=== PATIENT | male | born 1930 | race Caucasian/White ===

== ENCOUNTER → 2016-12-21 | Outpatient (CLI) | payer BC ==
[2016-12-21 13:00] LABS: BASO % 0.5 %; BASO ABS # 0.03 K/uL (0-0.2); COMPLETE YES; EOS % 2.1 %; HEMATOCRIT 45.3 % (42-52); IG% 0.2 %; LYMPH % 27.3 %; LYMPH ABS # 1.69 K/uL (1.2-3.4); MEAN CELL VOLUME 92.3 fL (80-100); MEAN CORPUSCULAR HEMOGLOBIN 30.1 pg (25-34); MEAN CORPUSCULAR HGB CONC 32.7 g/dl (32-36); MEAN PLATELET VOLUME 9.4 fL (7.4-10.4); MONO % 9.7 %; NEUT % 60.2 %; PLATELET COUNT 230 K/uL (130-400); RED BLOOD COUNT 4.91 M/uL (4.7-6.1); WHITE BLOOD COUNT 6.19 K/uL (4.8-10.8)
[2016-12-21 13:58] LABS: ALT/SGPT 53 U/L (12-78); AST/SGOT 35 U/L (15-37); BLOOD UREA NITROGEN 26 mg/dl (7-18); BUN/CREATININE RATIO 23.2 (10-20); CALCIUM 8.9 mg/dl (8.5-10.1); CARBON DIOXIDE 27 mmol/L (21-32); CHLORIDE 110 mmol/L (98-107); GLUCOSE 92 mg/dl (70-99); POTASSIUM 4.1 mmol/L (3.5-5.1); SODIUM 143 mmol/L (136-145)
[2016-12-21 14:01] LABS: CHOLESTEROL 182 mg/dl (0-200); CHOLESTEROL/HDL RATIO 3.8; HDL CHOLESTEROL 48 mg/dl; LDL CHOLESTEROL CALCULATED 97 mg/dl; TRIGLYCERIDES 185 mg/dl (0-150); VERY LOW DENSITY LIPOPROT CALC 37 mg/dl
== END | disposition home or self-care (01) ==
LOC: C.LABMFLN 10:03
PROVIDERS: ATTEND Family Medicine
DX: I48.92 Unspecified atrial flutter (principal); I25.10 Atherosclerotic heart disease of native coronary artery without angina pectoris; E78.5 Hyperlipidemia, unspecified

== ENCOUNTER → 2017-11-01 | Outpatient (CLI) | payer BC ==
[2017-11-01 12:58] LABS: BASO % 0.5 %; BASO ABS # 0.03 K/uL (0-0.2); EOS % 3.8 %; EOS ABS # 0.22 K/uL (0-0.5); HEMATOCRIT 44.9 % (42-52); HEMOGLOBIN 15.3 g/dL (14.0-18.0); IG# 0.01 K/uL (0.00-0.02); LYMPH % 21.4 %; LYMPH ABS # 1.23 K/uL (1.2-3.4); MEAN CELL VOLUME 92.4 fL (80-100); MEAN CORPUSCULAR HEMOGLOBIN 31.5 pg (25-34); MEAN CORPUSCULAR HGB CONC 34.1 g/dl (32-36); MONO % 9.5 %; MONO ABS # 0.55 K/uL (0.11-0.59); NEUT % 64.6 %; NEUT ABS # 3.72 K/uL (1.4-6.5); PLATELET COUNT 235 K/uL (130-400); RED CELL DISTRIBUTION WIDTH CV 13.7 % (11.5-14.5); RED CELL DISTRIBUTION WIDTH SD 46.5 fL (36.4-46.3); WHITE BLOOD COUNT 5.76 K/uL (4.8-10.8)
[2017-11-01 13:57] LABS: ALBUMIN 3.8 gm/dl (3.4-5.0); ALT/SGPT 46 U/L (12-78); AST/SGOT 37 U/L (15-37); BLOOD UREA NITROGEN 19 mg/dl (7-18); CALCIUM 9.4 mg/dl (8.5-10.1); CARBON DIOXIDE 27 mmol/L (21-32); CHOLESTEROL 177 mg/dl (0-200); CREATININE 1.06 mg/dl (0.60-1.40); GLUCOSE 84 mg/dl (70-99); SODIUM 140 mmol/L (136-145)
[2017-11-01 14:00] LABS: ALKALINE PHOSPHATASE 68 U/L (45-117); LDL CHOLESTEROL CALCULATED 105 mg/dl
== END | disposition home or self-care (01) ==
LOC: C.LABMFLN 10:13
PROVIDERS: ATTEND Family Medicine
DX: I48.92 Unspecified atrial flutter (principal); I25.10 Atherosclerotic heart disease of native coronary artery without angina pectoris; E78.5 Hyperlipidemia, unspecified; I10 Essential (primary) hypertension

== ENCOUNTER → 2018-02-07 | Outpatient (CLI) | payer BC ==
[2018-02-07 12:33] LABS: BASO % 0.3 %; BASO ABS # 0.02 K/uL (0-0.2); EOS ABS # 0.19 K/uL (0-0.5); HEMOGLOBIN 14.2 g/dL (14.0-18.0); IG# 0.02 K/uL (0.00-0.02); MEAN CELL VOLUME 93.3 fL (80-100); MEAN CORPUSCULAR HEMOGLOBIN 30.8 pg (25-34); MEAN PLATELET VOLUME 10.5 fL (7.4-10.4); MONO % 10.2 %; MONO ABS # 0.65 K/uL (0.11-0.59); NEUT % 64.2 %; NEUT ABS # 4.08 K/uL (1.4-6.5); PLATELET COUNT 202 K/uL (130-400); RED CELL DISTRIBUTION WIDTH CV 13.9 % (11.5-14.5); RED CELL DISTRIBUTION WIDTH SD 46.9 fL (36.4-46.3); WHITE BLOOD COUNT 6.36 K/uL (4.8-10.8)
[2018-02-07 12:44] LABS: INR 1.6 (0.9-1.1)
[2018-02-07 13:13] LABS: BLOOD UREA NITROGEN 22 mg/dl (7-18); CALCIUM 8.6 mg/dl (8.5-10.1); CARBON DIOXIDE 26 mmol/L (21-32); CREATININE 1.28 mg/dl (0.60-1.40); GLUCOSE 90 mg/dl (70-99); POTASSIUM 4.3 mmol/L (3.5-5.1); SODIUM 139 mmol/L (136-145)
== END | disposition home or self-care (01) ==
LOC: C.LABMFLN 10:52
PROVIDERS: ATTEND Family Medicine
DX: I95.9 Hypotension, unspecified (principal); Z79.01 Long term (current) use of anticoagulants; I25.10 Atherosclerotic heart disease of native coronary artery without angina pectoris

== ENCOUNTER → 2018-03-01 | Outpatient (CLI) | payer BC ==
[2018-03-01 12:36] LABS: BASO % 0.3 %; BASO ABS # 0.02 K/uL (0-0.2); EOS % 3.2 %; HEMOGLOBIN 14.4 g/dL (14.0-18.0); IG# 0.02 K/uL (0.00-0.02); LYMPH ABS # 1.45 K/uL (1.2-3.4); MEAN CORPUSCULAR HEMOGLOBIN 30.8 pg (25-34); MEAN CORPUSCULAR HGB CONC 32.7 g/dl (32-36); MEAN PLATELET VOLUME 10.5 fL (7.4-10.4); MONO % 7.1 %; MONO ABS # 0.45 K/uL (0.11-0.59); NEUT % 66.1 %; NEUT ABS # 4.16 K/uL (1.4-6.5); PLATELET COUNT 204 K/uL (130-400); RED CELL DISTRIBUTION WIDTH SD 48.2 fL (36.4-46.3)
[2018-03-01 13:24] LABS: ALBUMIN 3.6 gm/dl (3.4-5.0); ALKALINE PHOSPHATASE 64 U/L (45-117); ALT/SGPT 31 U/L (12-78); AST/SGOT 30 U/L (15-37); BLOOD UREA NITROGEN 19 mg/dl (7-18); CARBON DIOXIDE 26 mmol/L (21-32); CHOLESTEROL 160 mg/dl (0-200); CREATININE 1.09 mg/dl (0.60-1.40); GLUCOSE 102 mg/dl (70-99); LDL CHOLESTEROL CALCULATED 87 mg/dl; POTASSIUM 4.3 mmol/L (3.5-5.1); SODIUM 141 mmol/L (136-145); TOTAL PROTEIN 7.5 gm/dl (6.4-8.2)
== END | disposition home or self-care (01) ==
LOC: C.LABMFLN 09:30
PROVIDERS: ATTEND Family Medicine
DX: E78.5 Hyperlipidemia, unspecified (principal); I95.9 Hypotension, unspecified